=== PATIENT | female | born 1965 | race African-American/Black ===

== ENCOUNTER 2018-07-28 23:10 | Inpatient (IN) | payer MEDICARE, MEDICAID ==
[~2018-07-28] VITALS: Ht 162.6 cm; Wt 158.8 kg
[2018-07-29] MEDS ORDERED: MORPHINE SULFATE 4 MG/ML CPJ (NOT FOR IM USE) IV STA (00:51)
[2018-07-29] MEDS ORDERED: ONDANSETRON HCL 4MG/2ML INJ IV STA (00:51)
[2018-07-29] MEDS ORDERED: PIPERACILLIN/TAZOBACTAM 3.375GM/50ML PREMIX IV ONE (01:00)
[2018-07-29] MEDS ORDERED: ALBUTEROL (0.083%) 2.5MG/3ML NEB HHN ONE (01:00)
[2018-07-29] MEDS: VANCOMYCIN 1 G PREMIX 200 ML IV SCH ×2 (01:00→03:00)
[2018-07-29] MEDS ORDERED: ASPIRIN 81MG TABLET PO ONE (01:15)
[2018-07-29] MEDS ORDERED: PIPERACILLIN/TAZ 3.375G PREMIX 50 ML IV NR (01:15)
[2018-07-29 01:30] LABS: BASOPHILS % 0.7 % (0.0-2.0); EOSINOPHILS % 7.2 % (0.0-5.0); HEMATOCRIT. 39.2 % (36.0-48.0); HEMOGLOBIN. 12.4 g/dL (12.0-16.0); LYMPHOCYTES % 21.3 % (20.0-50.0); MEAN CORPUSCULAR HEMOGLOBIN 28.5 pg (28.0-32.0); MEAN CORPUSCULAR VOLUME 89.9 fL (81.0-99.0); MEAN PLATELET VOLUME 9.9 fl (7.4-10.4); MONOCYTES % 8.7 % (2.0-8.0); NEUTROPHILS % 62.1 % (40.0-76.0); PLATELET 207 x1000/uL (130-400); RED BLOOD CELL COUNT 4.37 mill/uL (4.2-5.4); RED CELL DISTRIBUTION WIDTH 17.4 % (11.6-14.6)
[2018-07-29 01:34] LABS: CHLORIDE 109 mEq/L (98-107)
[2018-07-29 01:37] LABS: INR 1.1; PROTHROMBIN TIME 10.7 sec (9.1-11.1)
[2018-07-29] MEDS ORDERED: KETOROLAC 15MG/ML VIAL IV ONE (03:45)
[2018-07-29] MEDS ORDERED: ACETAMINOPHEN 325MG TABLET PO PRN (04:30)
[2018-07-29] MEDS ORDERED: TETANUS, DIPHTHERIA, PERTUSSIS VAC/PF 0.5ML (>7YR OLD) IM ONE (06:00)
[2018-07-29] MEDS ORDERED: ONDANSETRON HCL 4MG/2ML INJ IV PRN (07:30)
[2018-07-29] MEDS ORDERED: DOCUSATE SODIUM 100MG CAPSULE PO PRN (07:30)
[2018-07-29] MEDS: HYDROCODONE/ACETAMINOPHEN 5/325MG TABLET PO PRN (08:35)
[2018-07-29 09:41] LABS: CLARITY URINE TURBID (CLEAR); COLOR URINE DARK YELLOW (YELLOW); KETONES URINE TRACE (NEGATIVE); LEUKOCYTE ESTERASE URINE 1+ (NEGATIVE); NITRITE URINE NEGATIVE (NEGATIVE); OCCULT BLOOD URINE 3+ (NEGATIVE); PROTEIN URINE 2+ (NEGATIVE)
[2018-07-29 09:59] LABS: *AMPHETAMINES SCREEN URINE NEGATIVE (NEGATIVE); *BARBITURATES SCREEN URINE NEGATIVE (NEGATIVE); *BENZODIAZEPINES SCREEN URINE NEGATIVE (NEGATIVE); *COCAINE SCREEN URINE NEGATIVE (NEGATIVE); CANNABINOID URINE SCREEN NEGATIVE (NEGATIVE); METHADONE URINE SCREEN NEGATIVE (NEGATIVE); OPIATES URINE SCREEN PRESUMTIVE POSITIVE (NEGATIVE); PHENCYCLIDINE URINE SCREEN NEGATIVE (NEGATIVE)
[2018-07-29 15:13] VITALS: BP 160/55
[2018-07-29 16:00] VITALS: BP 116/55
[2018-07-29] MEDS ORDERED: LEVOFLOXACIN 500MG PREMIX 100 ML IV SCH (17:00)
[2018-07-29 17:04] LABS: T4 FREE 1.1 ng/dL (0.76-1.46)
[2018-07-29] MEDS ORDERED: VANCOMYCIN 1250MG in DEXTROSE 5% WATER 250ML IV SCH (18:00)
[2018-07-29] MEDS: AMLODIPINE 10MG TABLET PO SCH (18:09)
[2018-07-29] MEDS: ENOXAPARIN 30MG/0.3ML SYR SUBCUT SCH (18:10)
[2018-07-29 20:00] VITALS: BP 132/58
[2018-07-30] VITALS: BP 164/63
[2018-07-30 00:09] LABS: CREATINE KINASE MB FRACTION 1.3 ng/mL (0.5-3.6)
[2018-07-30 04:00] VITALS: BP 121/68
[2018-07-30] MEDS: HYDROCODONE/ACETAMINOPHEN 5/325MG TABLET PO PRN (04:26)
[2018-07-30] MEDS: ENOXAPARIN 30MG/0.3ML SYR SUBCUT SCH ×2 (06:31→16:48)
[2018-07-30 06:44] LABS: CHLORIDE 104 mEq/L (98-107)
[2018-07-30 06:54] LABS: BASOPHILS % 0.4 % (0.0-2.0); EOSINOPHILS % 7.8 % (0.0-5.0); HEMATOCRIT. 35.2 % (36.0-48.0); HEMOGLOBIN. 11.2 g/dL (12.0-16.0); LYMPHOCYTES % 22.5 % (20.0-50.0); MEAN CORPUSCULAR VOLUME 91.1 fL (81.0-99.0); MEAN PLATELET VOLUME 10.7 fl (7.4-10.4); MONOCYTES % 9.5 % (2.0-8.0); NEUTROPHILS % 59.8 % (40.0-76.0); PLATELET 189 x1000/uL (130-400); RED BLOOD CELL COUNT 3.86 mill/uL (4.2-5.4); RED CELL DISTRIBUTION WIDTH 17.5 % (11.6-14.6)
[2018-07-30 07:00] LABS: HDL CHOLESTEROL 52 mg/dL (40-59)
[2018-07-30 07:02] LABS: LDL CHOLESTEROL 106 mg/dL (5-100)
[2018-07-30 08:00] VITALS: BP 136/54
[2018-07-30] MEDS: AMLODIPINE 10MG TABLET PO SCH (09:24)
[2018-07-30] MEDS: ASPIRIN 81MG EC TABLET PO SCH (09:25)
[2018-07-30] MEDS: LEVOFLOXACIN 500MG PREMIX 100 ML IV SCH (11:30)
[2018-07-30 12:00] VITALS: BP 162/71
[2018-07-30] MEDS: VANCOMYCIN 750 MG PREMIX 150 ML IV SCH ×2 (13:01→20:59)
[2018-07-30] MEDS: ACETAMINOPHEN 325MG TABLET PO PRN (13:01)
[2018-07-30] MEDS: FUROSEMIDE 40MG/4ML VIAL IVP SCH (13:46)
[2018-07-30] MEDS: NYSTATIN POWDER 15GM TOP SCH ×2 (13:50→16:47)
[2018-07-30 16:00] VITALS: BP 145/60
[2018-07-30] MEDS: DIPHENHYDRAMINE 50MG/ML VIAL IV PRN (16:47)
[2018-07-30 20:00] VITALS: BP 131/42
[2018-07-31] VITALS: BP 164/65
[2018-07-31 04:00] VITALS: BP 181/75
[2018-07-31] MEDS: CLONIDINE 0.1MG TABLET PO PRN (04:02)
[2018-07-31] MEDS: HYDROCODONE/ACETAMINOPHEN 5/325MG TABLET PO PRN ×2 (04:04→21:48)
[2018-07-31] MEDS: ENOXAPARIN 30MG/0.3ML SYR SUBCUT SCH ×2 (06:15→18:44)
[2018-07-31 07:40] LABS: CHLORIDE 104 mEq/L (98-107)
[2018-07-31 08:00] VITALS: BP 138/54
[2018-07-31] MEDS ORDERED: REGADENOSON 0.4 MG/5 ML IV ONE ×2 (08:00→09:42)
[2018-07-31] MEDS: FUROSEMIDE 40MG/4ML VIAL IVP SCH (08:43)
[2018-07-31] MEDS: AMLODIPINE 10MG TABLET PO SCH (08:44)
[2018-07-31] MEDS: NYSTATIN POWDER 15GM TOP SCH ×3 (08:44→18:43)
[2018-07-31] MEDS: ASPIRIN 81MG EC TABLET PO SCH (08:44)
[2018-07-31] MEDS: VANCOMYCIN 750 MG PREMIX 150 ML IV SCH (10:40)
[2018-07-31] MEDS: LEVOFLOXACIN 500MG PREMIX 100 ML IV SCH (11:38)
[2018-07-31 16:00] VITALS: BP 139/72
[2018-07-31 20:00] VITALS: BP 140/60
[2018-07-31] MEDS: VANCOMYCIN 1250MG in DEXTROSE 5% WATER 250ML IV SCH (21:47)
[2018-08-01] VITALS: BP 168/67
[2018-08-01] MEDS: CLONIDINE 0.1MG TABLET PO PRN ×2 (00:04→12:46)
[2018-08-01] MEDS: DIPHENHYDRAMINE 50MG/ML VIAL IV PRN ×3 (00:04→21:51)
[2018-08-01 04:00] VITALS: BP 166/73
[2018-08-01] MEDS: ENOXAPARIN 30MG/0.3ML SYR SUBCUT SCH (05:06)
[2018-08-01] MEDS: HYDROCODONE/ACETAMINOPHEN 5/325MG TABLET PO PRN ×3 (05:06→22:56)
[2018-08-01 08:00] VITALS: BP 148/74
[2018-08-01] MEDS: FUROSEMIDE 40MG/4ML VIAL IVP SCH (09:35)
[2018-08-01] MEDS: ASPIRIN 81MG EC TABLET PO SCH (09:36)
[2018-08-01] MEDS: AMLODIPINE 10MG TABLET PO SCH (09:36)
[2018-08-01] MEDS: VANCOMYCIN 1250MG in DEXTROSE 5% WATER 250ML IV SCH ×2 (09:39→21:43)
[2018-08-01] MEDS: NYSTATIN POWDER 15GM TOP SCH ×3 (09:40→18:23)
[2018-08-01] MEDS: LEVOFLOXACIN 500MG PREMIX 100 ML IV SCH (11:04)
[2018-08-01 12:26] VITALS: BP 167/82
[2018-08-01] MEDS: ACETAMINOPHEN 325MG TABLET PO PRN (12:45)
[2018-08-01 16:12] VITALS: BP 128/60
[2018-08-01] MEDS: ENOXAPARIN 40MG/0.4ML SYR SUBCUT SCH (18:24)
[2018-08-01 20:00] VITALS: BP 143/71
[2018-08-02] VITALS: BP 157/77
[2018-08-02 04:00] VITALS: BP 137/63
[2018-08-02] MEDS: DIPHENHYDRAMINE 50MG/ML VIAL IV PRN ×2 (06:03→21:08)
[2018-08-02] MEDS: ENOXAPARIN 40MG/0.4ML SYR SUBCUT SCH ×2 (06:03→17:35)
[2018-08-02] MEDS: HYDROCODONE/ACETAMINOPHEN 5/325MG TABLET PO PRN ×3 (06:21→23:48)
[2018-08-02 06:22] LABS: BASOPHILS % 0.8 % (0.0-2.0); EOSINOPHILS % 11.6 % (0.0-5.0); HEMATOCRIT. 34.1 % (36.0-48.0); HEMOGLOBIN. 10.9 g/dL (12.0-16.0); LYMPHOCYTES % 33.3 % (20.0-50.0); MEAN CORPUSCULAR HEMOGLOBIN 29.1 pg (28.0-32.0); MEAN CORPUSCULAR VOLUME 90.8 fL (81.0-99.0); MONOCYTES % 13.7 % (2.0-8.0); NEUTROPHILS % 40.6 % (40.0-76.0); PLATELET 196 x1000/uL (130-400); RED BLOOD CELL COUNT 3.75 mill/uL (4.2-5.4); RED CELL DISTRIBUTION WIDTH 17.4 % (11.6-14.6)
[2018-08-02 06:40] LABS: CHLORIDE 101 mEq/L (98-107)
[2018-08-02 08:00] VITALS: BP 168/56
[2018-08-02] MEDS: NYSTATIN POWDER 15GM TOP SCH ×3 (09:17→17:35)
[2018-08-02] MEDS: FUROSEMIDE 40MG/4ML VIAL IVP SCH (09:17)
[2018-08-02] MEDS: VANCOMYCIN 1250MG in DEXTROSE 5% WATER 250ML IV SCH ×2 (09:17→21:08)
[2018-08-02] MEDS: ASPIRIN 81MG EC TABLET PO SCH (09:17)
[2018-08-02] MEDS: AMLODIPINE 10MG TABLET PO SCH (09:17)
[2018-08-02] MEDS: ACETAMINOPHEN 325MG TABLET PO PRN (09:28)
[2018-08-02] MEDS: LEVOFLOXACIN 500MG TABLET PO SCH (11:28)
[2018-08-02 12:07] VITALS: BP 135/47
[2018-08-02 16:17] VITALS: BP 155/69
[2018-08-02 20:00] VITALS: BP 155/74
[2018-08-03] VITALS: BP 139/76
[2018-08-03] MEDS: ACETAMINOPHEN 325MG TABLET PO PRN ×2 (03:29→12:36)
[2018-08-03] MEDS: DIPHENHYDRAMINE 50MG/ML VIAL IV PRN ×3 (03:29→18:13)
[2018-08-03] MEDS: CLONIDINE 0.1MG TABLET PO PRN ×2 (03:50→12:35)
[2018-08-03 04:00] VITALS: BP 176/88
[2018-08-03] MEDS: ENOXAPARIN 40MG/0.4ML SYR SUBCUT SCH ×2 (06:53→17:07)
[2018-08-03 08:00] VITALS: BP 150/73
[2018-08-03] MEDS: FUROSEMIDE 40MG/4ML VIAL IVP SCH (10:11)
[2018-08-03] MEDS: LEVOFLOXACIN 500MG TABLET PO SCH (10:11)
[2018-08-03] MEDS: VANCOMYCIN 1250MG in DEXTROSE 5% WATER 250ML IV SCH ×2 (10:11→23:07)
[2018-08-03] MEDS: ASPIRIN 81MG EC TABLET PO SCH (10:11)
[2018-08-03] MEDS: AMLODIPINE 10MG TABLET PO SCH (10:11)
[2018-08-03] MEDS: NYSTATIN POWDER 15GM TOP SCH ×3 (10:12→17:08)
[2018-08-03 12:00] VITALS: BP 160/88
[2018-08-03 16:00] VITALS: BP 159/50
[2018-08-03] MEDS: HYDROCODONE/ACETAMINOPHEN 5/325MG TABLET PO PRN (17:07)
[2018-08-03 20:00] VITALS: BP 130/68
[2018-08-04] VITALS (7 sets, daily range): BP systolic 136–198; BP diastolic 56–79
[2018-08-04] MEDS: DIPHENHYDRAMINE 50MG/ML VIAL IV PRN ×4 (01:11→21:16)
[2018-08-04] MEDS: ENOXAPARIN 40MG/0.4ML SYR SUBCUT SCH ×2 (06:16→18:18)
[2018-08-04] MEDS: FUROSEMIDE 40MG/4ML VIAL IVP SCH (09:02)
[2018-08-04] MEDS: ASPIRIN 81MG EC TABLET PO SCH (09:03)
[2018-08-04] MEDS: NYSTATIN POWDER 15GM TOP SCH ×3 (09:03→18:19)
[2018-08-04] MEDS: AMLODIPINE 10MG TABLET PO SCH (09:03)
[2018-08-04] MEDS: VANCOMYCIN 1250MG in DEXTROSE 5% WATER 250ML IV SCH ×2 (10:32→21:16)
[2018-08-04] MEDS: LEVOFLOXACIN 500MG TABLET PO SCH (12:18)
[2018-08-04] MEDS: ACETAMINOPHEN 325MG TABLET PO PRN (13:28)
[2018-08-04] MEDS: CLONIDINE 0.1MG TABLET PO PRN (21:03)
[2018-08-04] MEDS: HYDROCODONE/ACETAMINOPHEN 5/325MG TABLET PO PRN (22:48)
[2018-08-05] VITALS: BP 139/59
[2018-08-05 04:00] VITALS: BP 156/66
[2018-08-05] MEDS: DIPHENHYDRAMINE 50MG/ML VIAL IV PRN ×3 (04:10→20:08)
[2018-08-05] MEDS: ENOXAPARIN 40MG/0.4ML SYR SUBCUT SCH ×2 (05:24→17:54)
[2018-08-05] MEDS: HYDROCODONE/ACETAMINOPHEN 5/325MG TABLET PO PRN ×3 (05:25→21:40)
[2018-08-05 08:00] VITALS: BP 147/81
[2018-08-05] MEDS: ASPIRIN 81MG EC TABLET PO SCH (09:18)
[2018-08-05] MEDS: AMLODIPINE 10MG TABLET PO SCH (09:18)
[2018-08-05] MEDS: VANCOMYCIN 1250MG in DEXTROSE 5% WATER 250ML IV SCH ×2 (09:18→21:33)
[2018-08-05] MEDS: FUROSEMIDE 40MG/4ML VIAL IVP SCH (09:18)
[2018-08-05] MEDS: NYSTATIN POWDER 15GM TOP SCH ×3 (09:19→17:50)
[2018-08-05] MEDS: LEVOFLOXACIN 500MG TABLET PO SCH (11:39)
[2018-08-05 12:00] VITALS: BP 143/68
[2018-08-05 15:57] VITALS: BP 134/68
[2018-08-05 20:00] VITALS: BP 174/62
[2018-08-05] MEDS: CLONIDINE 0.1MG TABLET PO PRN (21:32)
[2018-08-06] VITALS: BP 138/65
[2018-08-06 04:00] VITALS: BP 139/65
[2018-08-06] MEDS: DIPHENHYDRAMINE 50MG/ML VIAL IV PRN (04:01)
[2018-08-06] MEDS: ENOXAPARIN 40MG/0.4ML SYR SUBCUT SCH ×2 (05:30→19:18)
[2018-08-06 08:00] VITALS: BP 139/67
[2018-08-06] MEDS: FUROSEMIDE 40MG/4ML VIAL IVP SCH ×2 (09:00→09:44)
[2018-08-06] MEDS: NYSTATIN POWDER 15GM TOP SCH ×3 (09:00→16:54)
[2018-08-06] MEDS: ASPIRIN 81MG EC TABLET PO SCH (09:43)
[2018-08-06] MEDS: AMLODIPINE 10MG TABLET PO SCH (09:44)
[2018-08-06] MEDS: HYDROCODONE/ACETAMINOPHEN 5/325MG TABLET PO PRN ×2 (09:44→16:54)
[2018-08-06] MEDS: FUROSEMIDE 40MG TABLET PO SCH (12:37)
[2018-08-06] MEDS: DIPHENHYDRAMINE 50MG CAPSULE PO PRN ×2 (12:37→19:19)
[2018-08-06 20:00] VITALS: BP 159/74
[2018-08-07] VITALS: BP 127/58
[2018-08-07] MEDS: HYDROCODONE/ACETAMINOPHEN 5/325MG TABLET PO PRN ×2 (00:11→18:46)
[2018-08-07] MEDS: DIPHENHYDRAMINE 50MG CAPSULE PO PRN ×3 (01:46→19:56)
[2018-08-07 04:00] VITALS: BP 138/63
[2018-08-07] MEDS: ENOXAPARIN 40MG/0.4ML SYR SUBCUT SCH ×2 (06:03→18:20)
[2018-08-07 08:00] VITALS: BP 156/70
[2018-08-07] MEDS: ASPIRIN 81MG EC TABLET PO SCH (09:29)
[2018-08-07] MEDS: AMLODIPINE 10MG TABLET PO SCH (09:29)
[2018-08-07] MEDS: FUROSEMIDE 40MG TABLET PO SCH (09:29)
[2018-08-07] MEDS: NYSTATIN POWDER 15GM TOP SCH ×2 (09:30→18:54)
[2018-08-07] MEDS: ACETAMINOPHEN 325MG TABLET PO PRN (09:43)
[2018-08-07 12:00] VITALS: BP 160/54
[2018-08-07 16:00] VITALS: BP 176/75
[2018-08-07] MEDS: CLONIDINE 0.1MG TABLET PO PRN (18:54)
[2018-08-07 20:00] VITALS: BP_SYST 170; BP_SYST 190; BP_DIAS 79; BP_DIAS 80
[2018-08-08] VITALS: BP 178/68
[2018-08-08] MEDS: CLONIDINE 0.1MG TABLET PO PRN ×2 (00:56→20:52)
[2018-08-08] MEDS: HYDROCODONE/ACETAMINOPHEN 5/325MG TABLET PO PRN ×3 (00:56→20:50)
[2018-08-08] MEDS: DIPHENHYDRAMINE 50MG CAPSULE PO PRN ×3 (02:28→18:40)
[2018-08-08 04:00] VITALS: BP 133/59
[2018-08-08] MEDS: ENOXAPARIN 40MG/0.4ML SYR SUBCUT SCH ×2 (05:10→18:40)
[2018-08-08 08:00] VITALS: BP 141/60
[2018-08-08] MEDS: ASPIRIN 81MG EC TABLET PO SCH (09:44)
[2018-08-08] MEDS: FUROSEMIDE 40MG TABLET PO SCH (09:45)
[2018-08-08] MEDS: AMLODIPINE 10MG TABLET PO SCH (09:45)
[2018-08-08] MEDS: NYSTATIN POWDER 15GM TOP SCH ×3 (09:46→18:41)
[2018-08-08 12:00] VITALS: BP 148/56
[2018-08-08 16:00] VITALS: BP 141/52
[2018-08-08 20:00] VITALS: BP 162/80
[2018-08-09] VITALS: BP 132/46
[2018-08-09 04:00] VITALS: BP 148/67
[2018-08-09] MEDS: DIPHENHYDRAMINE 50MG CAPSULE PO PRN ×3 (04:15→23:29)
[2018-08-09] MEDS: ENOXAPARIN 40MG/0.4ML SYR SUBCUT SCH ×2 (06:03→17:32)
[2018-08-09] MEDS: HYDROCODONE/ACETAMINOPHEN 5/325MG TABLET PO PRN ×2 (06:12→17:32)
[2018-08-09 08:00] VITALS: BP 144/58
[2018-08-09] MEDS: AMLODIPINE 10MG TABLET PO SCH (09:18)
[2018-08-09] MEDS: ASPIRIN 81MG EC TABLET PO SCH (09:18)
[2018-08-09] MEDS: FUROSEMIDE 40MG TABLET PO SCH (09:18)
[2018-08-09] MEDS: NYSTATIN POWDER 15GM TOP SCH ×2 (09:20→13:00)
[2018-08-09 12:00] VITALS: BP 146/63
[2018-08-09 16:00] VITALS: BP 160/71
[2018-08-09 20:00] VITALS: BP 196/68
[2018-08-09] MEDS: CLONIDINE 0.1MG TABLET PO PRN (23:01)
[2018-08-10] VITALS: BP 151/81
[2018-08-10 04:00] VITALS: BP 134/64
[2018-08-10] MEDS: HYDROCODONE/ACETAMINOPHEN 5/325MG TABLET PO PRN ×3 (04:34→15:34)
[2018-08-10] MEDS: ENOXAPARIN 40MG/0.4ML SYR SUBCUT SCH ×2 (04:35→10:22)
[2018-08-10] MEDS: FUROSEMIDE 40MG TABLET PO SCH (10:21)
[2018-08-10] MEDS: AMLODIPINE 10MG TABLET PO SCH (10:21)
[2018-08-10] MEDS: DIPHENHYDRAMINE 50MG CAPSULE PO PRN ×2 (10:21→18:39)
[2018-08-10] MEDS: ASPIRIN 81MG EC TABLET PO SCH (10:22)
[2018-08-10 10:56] VITALS: BP 139/59
[2018-08-10 12:00] VITALS: BP 145/67
[2018-08-10 16:00] VITALS: BP 137/61
[2018-08-10 20:00] VITALS: BP 166/74
[2018-08-11] VITALS: BP_SYST 158; BP_DIAS 58; BP_DIAS 62
[2018-08-11] MEDS: HYDROCODONE/ACETAMINOPHEN 5/325MG TABLET PO PRN ×4 (00:29→21:18)
[2018-08-11 04:00] VITALS: BP 158/58
[2018-08-11] MEDS: ENOXAPARIN 40MG/0.4ML SYR SUBCUT SCH ×2 (07:12→18:05)
[2018-08-11 08:00] VITALS: BP 135/47
[2018-08-11] MEDS: AMLODIPINE 10MG TABLET PO SCH (09:00)
[2018-08-11] MEDS: FUROSEMIDE 40MG TABLET PO SCH (09:14)
[2018-08-11] MEDS: ASPIRIN 81MG EC TABLET PO SCH (09:14)
[2018-08-11] MEDS: DIPHENHYDRAMINE 50MG CAPSULE PO PRN ×2 (10:38→21:18)
[2018-08-11 12:00] VITALS: BP 161/68
[2018-08-11] MEDS: CLONIDINE 0.1MG TABLET PO PRN (12:52)
[2018-08-11 16:00] VITALS: BP 136/65
[2018-08-11 20:00] VITALS: BP 158/62
[2018-08-12] VITALS (7 sets, daily range): BP systolic 147–195; BP diastolic 67–87
[2018-08-12] MEDS: HYDROCODONE/ACETAMINOPHEN 5/325MG TABLET PO PRN ×3 (03:41→21:27)
[2018-08-12] MEDS: DIPHENHYDRAMINE 50MG CAPSULE PO PRN ×3 (05:27→21:27)
[2018-08-12] MEDS: ENOXAPARIN 40MG/0.4ML SYR SUBCUT SCH ×3 (05:27→21:26)
[2018-08-12 06:52] LABS: BASOPHILS % 1.2 % (0.0-2.0); EOSINOPHILS % 7.6 % (0.0-5.0); HEMATOCRIT. 38.5 % (36.0-48.0); HEMOGLOBIN. 12.3 g/dL (12.0-16.0); LYMPHOCYTES % 42.8 % (20.0-50.0); MEAN CORPUSCULAR HEMOGLOBIN 28.7 pg (28.0-32.0); MEAN CORPUSCULAR VOLUME 89.9 fL (81.0-99.0); MEAN PLATELET VOLUME 10.2 fl (7.4-10.4); MONOCYTES % 12.2 % (2.0-8.0); NEUTROPHILS % 36.2 % (40.0-76.0); PLATELET 278 x1000/uL (130-400); RED BLOOD CELL COUNT 4.28 mill/uL (4.2-5.4)
[2018-08-12 08:03] LABS: CHLORIDE 102 mEq/L (98-107)
[2018-08-12] MEDS: FUROSEMIDE 40MG TABLET PO SCH (09:10)
[2018-08-12] MEDS: AMLODIPINE 10MG TABLET PO SCH (09:10)
[2018-08-12] MEDS: ASPIRIN 81MG EC TABLET PO SCH (09:10)
[2018-08-12] MEDS: CLONIDINE 0.1MG TABLET PO PRN (21:27)
[2018-08-13] VITALS: BP 169/65
[2018-08-13 04:00] VITALS: BP 193/73
[2018-08-13] MEDS: CLONIDINE 0.1MG TABLET PO PRN ×2 (05:30→21:44)
[2018-08-13 08:00] VITALS: BP 138/73
[2018-08-13] MEDS: FUROSEMIDE 40MG TABLET PO SCH (09:52)
[2018-08-13] MEDS: ASPIRIN 81MG EC TABLET PO SCH (09:52)
[2018-08-13] MEDS: ENOXAPARIN 40MG/0.4ML SYR SUBCUT SCH ×2 (09:53→20:22)
[2018-08-13] MEDS: HYDROCODONE/ACETAMINOPHEN 5/325MG TABLET PO PRN ×2 (09:53→19:02)
[2018-08-13] MEDS: DIPHENHYDRAMINE 50MG CAPSULE PO PRN ×3 (09:53→21:43)
[2018-08-13] MEDS: AMLODIPINE 10MG TABLET PO SCH (09:53)
[2018-08-13 12:00] VITALS: BP 129/76
[2018-08-13 16:00] VITALS: BP 155/65
[2018-08-13 20:00] VITALS: BP 124/68
[2018-08-14] VITALS: BP 117/50
[2018-08-14 04:00] VITALS: BP 118/48
[2018-08-14 08:00] VITALS: BP_SYST 141; BP_SYST 170; BP_DIAS 52; BP_DIAS 79
[2018-08-14] MEDS: ASPIRIN 81MG EC TABLET PO SCH (08:45)
[2018-08-14] MEDS: FUROSEMIDE 40MG TABLET PO SCH (08:45)
[2018-08-14] MEDS: AMLODIPINE 10MG TABLET PO SCH (08:45)
[2018-08-14] MEDS: ENOXAPARIN 40MG/0.4ML SYR SUBCUT SCH (08:45)
[2018-08-14 12:00] VITALS: BP 170/79
[2018-08-14 16:00] VITALS: BP 125/67
[2018-08-14] MEDS ORDERED: FURO-151 MT (16:45)
[2018-08-14] MEDS ORDERED: ASPI-1159 MT (16:45)
[2018-08-14] MEDS ORDERED: AMLO10TA80 MT (16:45)
[2018-08-14 16:46] VITALS: BP 123/67
== END 2018-08-14 17:25 | disposition home or self-care (01) | DRG 205 ==
LOC: ER 23:44 → 5WST 07-29 04:17 → EDBEDREQ 07-29 04:24 → EDBEDREQTM 07-29 04:24 → ENRESERV 07-29 11:56 → 5WST 07-31 12:39
PROVIDERS: ADMIT Hospitalist; ATTEND Hospitalist
DX: M94.0 Chondrocostal junction syndrome [Tietze] (principal); I50.33 Acute on chronic diastolic (congestive) heart failure; L03.115 Cellulitis of right lower limb; N39.0 Urinary tract infection, site not specified; L03.116 Cellulitis of left lower limb; L30.4 Erythema intertrigo; I11.0 Hypertensive heart disease with heart failure; E78.5 Hyperlipidemia, unspecified; I25.10 Atherosclerotic heart disease of native coronary artery without angina pectoris; Z59.0 Homelessness
CPT/HCPCS: 36415; 71045; 78452; 78580; 80048; 80061; 80202; 80305; 82550; 82553; 83036; 83605; 83880; 84134; 84439; 84443; 84484; 85379; 90715; 93005; 93017; 93306; 93970; 94640; 96372; 97116; 97162; 97166; 97530; 99285; A6261; A9500; J1200; J1650; J1885; J1940; J1956; J2270; J2405; J2543; J2785; J3370; J7050; J7060; J7611; Q0163; A4315